=== PATIENT | male | born 1985 | race Caucasian/White ===

== ENCOUNTER 2018-11-06 11:39 | Emergency (ER) | payer MEDICARE, OTHER ==
[~2018-11-06] VITALS: Ht 182.9 cm; Wt 82.2 kg
[2018-11-06 11:51] VITALS: Ht 182.9 cm; Wt 82.2 kg
[2018-11-06] MEDS ORDERED: LORAZEPAM 1 MG TAB PO ONE (13:30)
[2018-11-06] MEDS ORDERED: POTASSIUM CHLORIDE (SR) 20 MEQ TAB PO STA (15:09)
[2018-11-07 10:53] VITALS: BP 106/57; PULSE 83; RESP 18
== END 2018-11-07 11:30 ==
LOC: E/R 11:39
DX: E87.6 Hypokalemia (principal)
CPT/HCPCS: 36415; 80053; 80307; 85025; 99285